=== PATIENT | male | born 1995 | race Caucasian/White ===

== ENCOUNTER 2021-03-08 08:01 | Outpatient (CLI) | payer OTHER, SELFPAY ==
--- NOTE | ~2021-03-08 | XR_ITS ---
XR shoulder RT min 2V 03/08/2021 08:17 INDICATION: Right shoulder pain PROCEDURE: 4 views right shoulder COMPARISON: 11/13/2012 FINDINGS: Fracture, dislocation or subluxation is not identified. The soft tissues appear within norm al limits. No foreign bodies are identified. IMPRESSION: 1: NO ACUTE BONE OR JOINT ABNORMALITY IDENTIFIED. Reviewed, dictated and finalized at location B.
== END 2021-03-08 08:02 ==
PROVIDERS: PCP Family Medicine; Visit Provider Physician Assistant
DX: M25.511 Pain in right shoulder (principal)
CPT/HCPCS: 73030

== ENCOUNTER 2021-06-28 06:42 | Outpatient (CLI) | payer OTHER, SELFPAY ==
--- NOTE | ~2021-06-28 | MR_ITS ---
EXAMINATION: MR shoulder RT wo con DATE: 06/28/2021 07:43 INDICATION: Impingement syndrome of the right shoulder. TECHNIQUE: Magnetic resonance imaging (MRI) of the right shoulder was performed without intravenous c ontrast. Sequences included axial PD-weighted FS FSE, coronal oblique PD-weighted FS FSE, coronal obl ique T2-weighted FS FSE, sagittal PD-weighted FS FSE, and sagittal T1-weighted SE. COMPARISON: Right shoulder radiographs dated 03/08/2021 FINDINGS: Coracoacromial arch: The acromion undersurface is curved in morphology (type II). The coracoacromial ligament is normal. A cromioclavicular joint is normal. Rotator cuff: The supraspinatus, infraspinatus and teres minor tendons are normal. The subscapularis tendon is norm al. Normal rotator cuff muscle bulk and signal. Biceps tendon, glenoid labrum and glenohumeral cartilage: Long head of the biceps tendon is normal. There is a small fluid signal intensity cleft along the cho ndral labral junction at the 9:30-10:30 position of the posterior superior labrum consistent with par tial thickness delaminating tear. Glenohumeral cartilage is normal. Fluid: Physiologic amount of fluid in the glenohumeral joint and biceps tendon sheath. No loose osteochondra l bodies. No abnormal fluid signal in the subacromial/subdeltoid bursa consistent with mild bursitis. Bones: Normal marrow signal with no edema, fracture or abnormal marrow replacing process. IMPRESSION: 1. Small partial-thickness delaminating tear at the chondral labral junction at the posterior superio r glenoid. Reviewed, dictated and finalized at location A. IMPRESSION: 1. Small partial-thickness delaminating tear at the chondral labral junction at the posterior superior glenoid.
== END 2021-06-28 06:43 | disposition home or self-care (01) ==
PROVIDERS: PCP Family Medicine; Visit Provider Orthopaedic Surgery
DX: M75.41 Impingement syndrome of right shoulder (principal)
CPT/HCPCS: 73221

== ENCOUNTER 2021-08-01 00:36 | Day surgery (SDC) | payer OTHER, SELFPAY ==
[2021-07-24 10:56] VITALS: BMI 38.9
--- NOTE | 2021-07-31 11:07 | WPDANESEPPF ---
Anes - Initial Pre Proc Eval Procedure: Operation Date: 08/01/21 10:30 Proposed Procedures p Right Arthroscopic Superior Labrum Anterior to Posterior Tear Debridement, Mini Open Biceps Tenodesis, Proceed as Indicated - Harley Workman MD Date/Time: 07/31/21 11:07 Surgeon: Harley Workman MD Pre Op Diagnosis: impingement syndrome right shoulder Patient Data Age: 26 Gender: M Height: 2.01 m Weight: 156.8 kg Allergies Allergy/AdvReac Type Severity Reaction Status Date / Time No Known Allergies Allergy Unknown Verified 08/01/21 08:53 Home Medications Medication Instructions Recorded Confirmed Type No Home Medications 07/03/21 08/01/21 History Patient hx anesthesia problems: none Family hx anesthesia problems: none [facility] Past Medical History Medical History (Updated 07/31/21 @ 11:07 by Laurent Patel MD) Impingement syndrome of right shoulder Obesity Superior labrum jfjanrcf-wl-jffrzenxl (SLAP) tear of right shoulder Family History Family History Father Family history of diabetes mellitus in first degree relative Grandparent Family history of malignant neoplasm of breast Family history of heart disease in male family member before age 55 Social History Social History Smoking status: Never smoker Alcohol intake: current Living arrangements: with family Spiritual care concerns: No Anes - Eval Final PreProcedure Day of Procedure 07/31/21 11:07 Patient weight: obese Heart: regular rate and rhythm Lungs: clear to auscultation and normal air movement Airway: Mallampati scale class II Neurological: alert and oriented Last oral intake: >/= 8 hours ASA classification: III Emergent: no Anesthetic plan: proceed Anesthesia type and monitoring: general ETT Informed Consent: The patient's anesthetic plan and its attendant risks and benefits were discussed with the patient/family/POA. Questions were solicited and answers provided to the satisfaction of the patient/family/POA.
[2021-08-01] VITALS (10 sets, daily range): BP systolic 121–159; BP diastolic 55–95; PULSE 53–110; RESP 12–20; TEMP 36.3–36.5; O2SAT 95–100; BMI 38.6
[2021-08-01] MEDS: ACETAMINOPHEN 500 MG TABLET 1000 MG PO (09:06)
[2021-08-01] MEDS: LACTATED RINGERS 1,000 ML 30 ML IV CONT ×2 (09:06→12:06)
[2021-08-01] MEDS: KETOROLAC 15 MG/ML VIAL (*BKC) IV PUSH (09:06)
--- NOTE | 2021-08-01 09:08 | WPDANESPNB ---
Anes - Peripheral Nerve Block Date/Time: 08/01/21 09:08 I have discussed with the patient/family/POA the placement of a peripheral nerve block for post-operative pain management, including associated risks, benefits, complications, and side effects. Alternative methods of post-operative analgesia were detailed. Questions were solicited and answers provided to the satisfaction of the patient/family/POA. Time-Out: A pre-procedural Time-Out was completed immediately before starting the procedure and confirmed: Patient Identification, Site, Procedure, Patient Position and the Availability of Requisite Equipment. Clinical Indications: Acute post-operative pain management requested by the operative surgeon. Nerve Block Insertion Note Anes-nerve block: supraclavicular right Patient position: supine Skin prep: chlorhexidine Needle: 22 gauge, stimulating, insulated echogenic needle. Needle length: 80 mm Technique: ultrasound (in plane) Injectate: bupivacaine 0.5% with epi 5 mcg/ml (20cc) Observations: tolerated well Complications: none Procedure start time:: 1000 Procedure end time:: 1005
--- NOTE | 2021-08-01 10:07 | SUR.PREOP ---
late note, 0845; pt has some chigger bites to bilat ankles.
--- NOTE | 2021-08-01 10:07 | WPDHPUPDATE1 ---
History and Physical Update Update Date/Time: 08/01/21 10:07 History and Physical has been reviewed, including an updated exam of the patient. There are NO changes in the patient's condition. Risks, benefits, and alternatives have been discussed and questions answered. Patient agrees to proceed with procedure.
[2021-08-01] MEDS: ceFAZolin 3 GM/D5W 100 ML 100 ML IVPB (10:17)
[2021-08-01] MEDS: ONDANSETRON INJ 4 MG/2 ML VIAL IV PUSH (13:05)
--- NOTE | 2021-08-01 15:24 | P.OP_ITS ---
Procedure Note - Detailed Date of Procedure 08/01/21 Pre-op Diagnosis 1. Impingement syndrome right shoulder 2. Posterior superior labral tear. Post-op Diagnosis same Procedure Performed 1. Arthroscopic posterior labral debridement 2. Arthroscopic subacromial decompression Surgeon Harley Workman MD Tube Pusher Cinda Santana PA-C Anesthesia general and regional Indications Persistent diffuse shoulder plain worse with overhead activities. MRI shows subtle sub labral delamination defect. Concern for unstable SLAP preoperatively. Findings The labral fraying was quite modest. Simple debridement and treatment with the radiofrequency probe created near normal appearing anatomy. The superior labrum anchor was only subtly frayed without any instability. Mild fraying of the anterior labrum treated with gentle debridement. Hyperemia of the rotator cuff consistent with impingement. Dynamic testing revealed internal impingement with subtle fraying at the articular supraspinatus. The biceps was pulled into the joint and appeared entirely normal. Description of Procedure General anesthetic was administered. Standard surgical prep and drape performed. No abnormal findings upon examination. Standard posterior and anterior portals established. Beach chair position. Inflow with the saline pump. The posterior superior labrum showed him very modest lifting off of the posterior superior labrum. No significant instability. Subtle hyperemia. Glenohumeral cartilage normal. Superior labrum anchor intact. No gross instability with probing. Minimal fraying of the anterior labrum within normal sub labral sulcus. Subscapularis and supraspinatus appeared normal other than very mild fraying under the supraspinatus. Dynamic testing revealed impingement of the supraspinatus on the posterior superior labrum. Axillary recess appeared normal. Capsular volume appeared normal. After subtle debridement was performed of the labrum with the shaver and the radiofrequency probe, the tissue appeared nearly normal. Attention was turned to the subacromial space. Moderate hyperemia and evidence of bursitis. The bursa was excised. The rotator cuff tissue was intact. The acromion showed downsloping consistent with preoperative imaging studies. Decompression was performed with the arthroscopic cameron. Physician medical records assistant, Cinda Santana PA-C, required for surgery; including patient positioning, draping, arthroscopic camera operation, maintaining instrument position, wound closure, and dressing and sling placement. Estimated Blood Loss -20.0 Drains No Packing No Complications No immediate complications Condition stable Disposition PACU
== END 2021-08-01 14:30 | disposition home or self-care (01) ==
PROVIDERS: PCP Family Medicine; Visit Provider Orthopaedic Surgery
PROC: (CPT 29805; principal; 2021-08-01 10:30)
DX: S43.431A Superior glenoid labrum lesion of right shoulder, initial encounter (principal); M75.41 Impingement syndrome of right shoulder; G89.18 Other acute postprocedural pain; X58.XXXA Exposure to other specified factors, initial encounter; E66.9 Obesity, unspecified; Z68.38 Body mass index [BMI] 38.0-38.9, adult
CPT/HCPCS: 29822; 64415; A4565; A9270; J0330; J0690; J1100; J1170; J1885; J2250; J2405; J2704; J3010; J7120

== ENCOUNTER 2022-08-30 19:30 | Emergency (ER) | payer OTHER, SELFPAY ==
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
[2022-08-30 19:35] VITALS: BP 178/117; PULSE 113; RESP 18; TEMP 36.3; O2SAT 100
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
[2022-08-30] MEDS: KETOROLAC (*BKC) 60 MG/2 ML VIAL IM (21:27)
[2022-08-30] MEDS: CYCLOBENZAPRINE HCL 10 MG TABLET PO (21:27)
== END 2022-08-30 22:00 | disposition home or self-care (01) ==
PROVIDERS: Emergency Provider Emergency Medicine; PCP Family Medicine
DX: S16.1XXA Strain of muscle, fascia and tendon at neck level, initial encounter (principal); S29.012A Strain of muscle and tendon of back wall of thorax, initial encounter; E66.9 Obesity, unspecified; Z68.41 Body mass index [BMI] 40.0-44.9, adult; V44.5XXA Car driver injured in collision with heavy transport vehicle or bus in traffic accident, initial encounter
CPT/HCPCS: 72040; 72072; 72100; 72128; 96372; 99284; A9270; J1885

== ENCOUNTER 2023-10-01 14:39 | Outpatient (CLI) | payer OTHER, SELFPAY ==
--- NOTE | ~2023-10-01 | XR_ITS ---
EXAM: XR knee LT 3V DATE: 10/01/2023 14:57 HISTORY: M25.562 - Pain in left knee . COMPARISON: 05/21/2016. FINDINGS: Normal mineralization. Deep lateral sulcus sign, also seen in the prior study. No acute fr acture or dislocation. No lytic or blastic lesion. Mild medial joint space narrowing. Mild tricompart mental osteophytosis. No erosion or periosteal change. Soft tissues within normal limits. IMPRESSION: No acute osseous finding in the left knee Mild tricompartment osteoarthritic change. Reviewed, dictated and finalized at location K. CIPAL SECRETARY IMPRESSION: No acute osseous finding in the left knee Mild tricompartment osteoarthritic pati meyer.
== END 2023-10-01 14:40 ==
LOC: MICIMG 14:40
PROVIDERS: PCP Physician Assistant; Visit Provider Physician Assistant
DX: M17.12 Unilateral primary osteoarthritis, left knee (principal)
CPT/HCPCS: 73562

== ENCOUNTER 2023-12-06 15:55 | Outpatient (CLI) | payer OTHER, SELFPAY ==
--- NOTE | ~2023-12-06 | MR_ITS ---
EXAMINATION: MR knee LT wo con DATE: 12/06/2023 16:29 INDICATION: Left knee pain TECHNIQUE: Magnetic resonance imaging (MRI) of the left knee was performed without intravenous contra st. Sequences included coronal PD-weighted FSE, coronal PD-weighted FS FSE, sagittal T2-weighted FSE , sagittal PD-weighted FS FSE and axial PD weighted fat saturated FSE. COMPARISON: None. FINDINGS: Medial compartment: Medial meniscus is normal. Articular cartilage is normal. Lateral compartment: Lateral meniscus is normal. Deep chondral fissuring which appears to involve greater than 50% the car tilage thickness at the central to posterior aspect of the lateral tibial plateau. There is a tiny fo cus of underlying subarticular edema-like signal change at the central aspect of the lateral tibial p lateau. Cartilage along the weightbearing lateral femoral condyle is normal. Patellofemoral compartment: Small focus of chondral swelling without definitive fissuring at the medial side of the medial patell ar facet. Trochlear cartilage is normal. Ligaments and tendons: Anterior and posterior cruciate ligaments are normal. The medial collateral ligament and fibular kevin ateral ligament complex are normal. The extensor mechanism is normal. The visualized medial and later al hamstring tendons as well as the iliotibial band are normal. Fluid: Physiologic amount of fluid in the joint space. No loose osteochondral bodies identified. Very small Ramirez's cyst. Osseous/other: 10 mm lateral patellar subluxation. No fracture or pathologic marrow replacing process. IMPRESSION: 1. Mild osteoarthritis in the lateral compartment with moderate to high-grade chondromalacia along th e lateral tibial plateau. 2. 10 mm lateral patellar subluxation with small focus of low-grade chondromalacia at the medial barreto llar facet. 3. Very small Ramirez's cyst. Reviewed, dictated and finalized at location A. TH INFORMATION MANAGER IMPRESSION: 1. Mild osteoarthritis in the lateral compartment with moderate to high-grade c hondromalacia along the lateral tibial plateau. 2. 10 mm lateral patellar subluxation with small focus of low-grade chondromala landy at the medial patellar facet. 3. Very small Ramirez's cyst.
== END 2023-12-06 15:56 ==
LOC: MICIMG 15:57
PROVIDERS: PCP Physician Assistant; Visit Provider Physician Assistant
DX: M17.12 Unilateral primary osteoarthritis, left knee (principal); M94.262 Chondromalacia, left knee; M71.22 Synovial cyst of popliteal space [Baker], left knee
CPT/HCPCS: 73721

== ENCOUNTER 2024-11-01 08:55 | Emergency (ER) | payer OTHER, SELFPAY ==
[2024-11-01 09:33] VITALS: BP 142/87; PULSE 68; RESP 18; TEMP 36.2; O2SAT 99
--- NOTE | 2024-11-01 09:46 | ED_ITS ---
HPI - URI/Sore Throat General Chief Complaint: Upper Respiratory Infection Stated Complaint: infection Time Seen by Provider: 11/01/24 09:47 Source: patient, RN notes reviewed and old records reviewed Mode of arrival: ambulatory Limitations: no limitations History of Present Illness HPI Narrative: 29-year-old male who presents to [facility] with complaints right ear pain and pressure for 2 days with some radiation to the right side of his face with some sinus drainage and congestion. patient reports that he has not had any drainage from his right ear. Patient reports no sore throat or any cough or any body aches reports no known fevers.Patient reports that he has taken some Tylenol for his discomfort MD elicited complaint: rhinorrhea, nasal congestion and other (ear pain) Pertinent past history: other ( ear infection) Onset (ago): day(s) (2) Severity: mild Description of mucous: clear Able to tolerate fluids by mouth: No Treatments prior to arrival: acetaminophen Related Data Allergies Allergy/AdvReac Type Severity Reaction Status Date / Time No Known Allergies Allergy Unknown Verified 11/01/24 09:34 Review of Systems Review of Systems: CONSTITUTIONAL: Denies malaise, chills, sweats, or fever. EYES: Denies visual changes, redness, or discharge. ENT: Reports rhinorrhea, congestion, no sinus pain,right otalgia and no sore throat. CARDIOVASCULAR: Denies chest pain, palpitations, or edema. RESPIRATORY: Reports no cough.? Denies dyspnea. GASTROINTESTINAL: Denies abdominal pain, nausea, vomiting, diarrhea SKIN: Denies rash or itching. MUSCULOSKELETAL: Denies myalgia. NEUROLOGIC: Denies headache. All systems reviewed & are unremarkable except as noted in HPI and below PMFSH Past Medical History Medical History Left radial fracture Right arm fracture Required pinning and then removal of pin Ear infection Acne Allergic rhinitis Surgical History Surgical History History of arthroscopic surgery of shoulder (~08/01/21) Posterior Labral Debridement with Subacromial Decompression - Rt Shoulder Family History Family History Father Family history of diabetes mellitus in first degree relative Grandparent Family history of malignant neoplasm of breast Family history of heart disease in male family member before age 55 Social History Social History Smoking status: Never smoker Alcohol intake: current Substance use: never Substance use type: does not use Do You Feel Safe in your Home?: Yes Lack of Transportation: No Lack of Food: Never True Current Housing: I Have Housing Concerned About Future Housing: No Difficulty Paying Gas/Electric Bills: No Difficulty Paying for Meds: No Currently Unemployed: No Education: Associate Degree Difficulty w/ Childcare or Family Care: No Living arrangements: with family Occupation/Education: occupation Gender identity (if verbalized by the patient): Male Sexual Orientation (if Verbalized by the Patient): Straight or Heterosexual Spiritual care concerns: No Comments At time of signature, agree with nursing past medical, surgical, social and family history. There is no relevant family history pertinent to the presenting complaint Exam Narrative: GENERAL: Well-appearing, well-nourished, and in no acute distress. HEAD: Normocephalic EYES: PERRLA, conjunctivae clear ENT: Nares clear, turbinates edematous and erythematous, clear discharge. Mucous membranes moist. Bilateral TM's with redness ; no tragal tenderness. Oropharynx erythematous without lesions. Tonsils not enlarged and without exudate, no drooling, no hoarseness, no trismus, uvula midline, some post nasal drainage. NECK: Supple. No lymphadenopathy CHEST: Clear to auscultation, breath sounds equal. No wheezing, rhonchi, rales, or stridor. No respiratory distress, speaks in full sentences.no cough noted SAO2 99% on room air HEART: Regular rate and rhythm. No murmur heard. SKIN: Warm, dry, no rash. NEURO: Alert and oriented x3. PSYCH: Normal mood and affect Course Course Emergency Course: Patient is aware of diagnosis, understands and agrees to treatment plan.? Anticipatory guidance given.? Patient agrees to follow-up as directed and is aware of reasons to seek care at the emergency department. Portions of this record may have been created with voice recognition software Level of Care: Express Care Visit Vital Signs Vital signs: Vital Signs Temperature 36.2 C L 11/01/24 09:33 Pulse Rate 68 12/22/24 09:33 Respiratory Rate 18 11/01/24 09:33 Blood Pressure 142/87 H 11/01/24 09:33 Pulse Oximetry 99 11/01/24 09:33 Oxygen Delivery Room Air 11/01/24 09:33 Temperature 36.2 C L 11/01/24 09:33 Pulse Rate 68 11/01/24 09:33 Respiratory Rate 18 11/01/24 09:33 Blood Pressure 142/87 H 11/01/24 09:33 Pulse Oximetry 99 11/01/24 09:33 Oxygen Delivery Room Air 11/01/24 09:33 Reviewed MDM - URI/Sore Throat MDM Narrative Medical decision making narrative: Differential diagnosis considered: Moyer virus, strep pharyngitis, allergic r hinitis, upper respiratory tract infection, sinusitis, rhinosinusitis, nasopharyngitis. viral pharyngitis, otitis media, otitis externa, pneumonia, bronchitis, viral cough syndrome, viral syndrome, and influenza.? Exam findings show no acute concerns or changes; patient is non-toxic appearing and is in no distress.? Patient is appropriate for outpatient treatment and follow-up. Differential Diagnosis Differential diagnosis: Likely upper respiratory infection, otitis media, viral infection and other (rhinitis) Medical Records Attestation: I reviewed the patient's medical records. Lab Data Attestation: I reviewed the patient's lab results. Critical Care Time Critical Care Time Critical Care Time: No Discharge Plan Discharge Clinical Impression: Bilateral otitis media Qualifiers: Otitis media type: serous Chronicity: acute Recurrence: not specified as recurrent Qualified Code(s): H65.03 - Acute serous otitis media, bilateral Patient Disposition: Home, Self-Care Condition: Stable Instructions: Antibiotic Form, Ear Infection (GEN) Additional Instructions: Increase fluids especially juices and water [id number] cough and cold medicine of your choice for your symptoms Zyrtec Claritin or Karrie daily Tylenol or ibuprofen for any fever pain heat to the face 20-30 minutes 4-6 times a day for pain Salt water gargles, throat lozenges or throat sprays as desired Antibiotic as directed--finished the medication If your symptoms persist, change or worsen significantly before you can contact your personal physician then please, without delay, go to the emergency department for further evaluation. Follow-up with PCP in 7-10 days or sooner if needed Follow up with PCP soon in regards to your blood pressure which is elevated above threshold for referral. Blood pressure above 120/80 may indicate pre- hypertension. 142/87 Patient Language: Kyrgyz Prescriptions: New amoxicillin-pot clavulanate 875-125 mg tablet 1 tablet PO Q12H Qty: 20 0RF Rx Instructions: take all doses of oral antibiotic till completed encourage use of probiotic or eat activa yogurt while on this antibiotic Follow-up/Referrals: Antonio Astudillo MD [Primary Care Provider] - Time of Disposition: 09:57 Quality [place] Coma Scale Eyes: Open Verbal: Oriented and Alert Motor: Follows Commands Elias Coma Total Score: 15
== END 2024-11-01 10:02 | disposition home or self-care (01) ==
PROVIDERS: Emergency Provider Registered Nurse; PCP Family Medicine
DX: H65.03 Acute serous otitis media, bilateral (principal)
CPT/HCPCS: 99213; G0463

== ENCOUNTER 2025-07-06 14:37 | Outpatient (RCR) | payer OTHER, SELFPAY ==
[2025-07-06 14:45] VITALS: BMI 42.2
[2025-07-06 14:47] VITALS: BMI 42.2
--- NOTE | 2025-07-06 16:23 | PCDIET ---
MNT Consult completed 07/06/25 Follow up scheduled.
== END 2025-09-20 11:40 | disposition home or self-care (01) ==
LOC: ANHDMC 14:37
PROVIDERS: PCP Family Medicine
DX: E66.01 Morbid (severe) obesity due to excess calories (principal); Z68.41 Body mass index [BMI] 40.0-44.9, adult; Z71.3 Dietary counseling and surveillance
CPT/HCPCS: 97802